=== PATIENT | male | born 1975 | race African-American/Black ===

== ENCOUNTER 2023-07-20 11:10 | Outpatient (REF) | payer MEDICAID, SELFPAY ==
[2023-07-20 15:26] LABS: Anion Gap 13 (12-20); Blood Urea Nitrogen 22 mg/dL (9-16); Calcium 9.9 mg/dL (8.4-10.2); Carbon Dioxide 31 mmol/L (22-29); Chloride 100 mmol/L (96-108); Estimated Glomerular Filt Rate > 60; Glucose Random 81 mg/dL (60-115); Potassium 4.2 mmol/L (3.3-5.1); Sodium 140 mmol/L (135-145)
== END 2023-07-20 11:11 | disposition home or self-care (01) ==
LOC: HO.CHCLDS 11:10
PROVIDERS: Visit Provider Internal Medicine
DX: I50.23 Acute on chronic systolic (congestive) heart failure (principal); I34.0 Nonrheumatic mitral (valve) insufficiency
CPT/HCPCS: 36415; 80048

== ENCOUNTER 2023-09-08 17:18 | Outpatient (REF) | payer MEDICAID, SELFPAY | END 2023-09-08 17:19 | disposition home or self-care (01) | LOC: HO.LNP 17:18 | PROVIDERS: Visit Provider Internal Medicine | DX: K12.1 Other forms of stomatitis (principal) | CPT/HCPCS: 87255 ==

== ENCOUNTER 2024-03-13 10:44 | Outpatient (REF) | payer MEDICAID, SELFPAY ==
[2024-03-13 14:24] LABS: MANUAL DIFF FLAG NO
[2024-03-13 14:31] LABS: Basophils Percent Auto 0.5 % (0-2); Hematocrit 41.7 % (42.0-52.0); Imm Gran Abs Auto 0.02 X10*3/uL (0.00-0.03); Imm Gran Pct Auto 0.5 % (0.0-0.4); Lymphocytes Absolute Auto 1.7 X10*3/uL (1.2-4.9); Lymphocytes Percent Auto 40.5 % (20-40); Mean Corpuscular HGB Conc 31.2 g/dl (31.0-36.0); Mean Corpuscular Volume 96.3 fL (80.0-98.0); Mean Platelet Volume 10.3 fL (9.4-12.4); Monocytes Absolute Auto 0.5 X10*3/uL (0.1-1.2); Monocytes Percent Auto 12.5 % (2-11); Neutrophils Absolute Auto 1.9 x10*3/uL (2.0-8.3); Platelet Count 182 X10*3/uL (160-400); Red Blood Count 4.33 X10*6/uL (4.60-5.80); Red Cell Distribution Width 12.4 % (11.0-16.0); White Blood Count 4.2 X10*3/uL (4.8-10.8)
[2024-03-13 14:51] LABS: Alanine Aminotransferase 14 U/L (0-40); Alkaline Phosphatase 78 U/L (39-117); Anion Gap 12 (12-20); Aspartate Amino Transferase 29 U/L (5-37); Bilirubin Direct 0.2 mg/dL (0.0-0.5); Bilirubin Total 0.3 mg/dL (0.0-1.0); Blood Urea Nitrogen 20 mg/dL (9-16); Calcium 10.1 mg/dL (8.4-10.2); Carbon Dioxide 31 mmol/L (22-29); Chloride 103 mmol/L (96-108); Cholesterol 194 mg/dL (<200); Estimated Glomerular Filt Rate > 60; Glucose Random 74 mg/dL (60-115); HDL Cholesterol 48 mg/dL (>40); LDL Cholesterol Calculated 131 mg/dL (<100); Potassium 4.1 mmol/L (3.3-5.1); Sodium 142 mmol/L (135-145); Total Protein 8.5 g/dL (6.5-8.0); Triglycerides 79 mg/dL (<150)
== END 2024-03-13 10:45 | disposition home or self-care (01) ==
LOC: HO.CHCLDS 10:44
PROVIDERS: Visit Provider Student in an Organized Health Care Education/Training Program
DX: R56.9 Unspecified convulsions (principal); D64.9 Anemia, unspecified
CPT/HCPCS: 36415; 80048; 80061; 80076; 85025

== ENCOUNTER 2025-03-25 11:09 | Outpatient (REF) | payer MEDICAID, SELFPAY ==
--- OUTSIDE RECORDS SUMMARY | 2025-03-25 10:15 | XMS_ITS | Encounter Summary ---
Author Organization [employer] Address [address] [facility] 7 [place] [address] Care Team Providers Care Investment Director Name Role Phone Dany Wiley MD Primary Care Provider [phone] Reason for Visit * Reason Comments transfer Encounter Details Date Type Department Care Team (Latest Contact Info) Description 03/25/2025 10:15 AM EST Office Visit [facility] [address] [place], [place] [phone] Dany Wiley MD [address] [place] [address] Developmental delay (Primary Dx); Generalized seizure (CMS/HCC) (HCC); Non-rheumatic mitral regurgitation; Seasonal allergic rhinitis, unspecified trigger; Dietary counseling; Exercise counseling; Overweight; Other constipation; Encounter for immunization Social History Tobacco Use Types Packs/Day Years Used Date Smoking Tobacco: Never Smokeless Tobacco: Never Alcohol Use Standard Drinks/Week Comments Never 0 (1 standard drink = 0.6 oz pur e alcohol) Housing Stability Answer Date Recorded What is your housing situation today? I have reynold phillip 03/13/[address] you li ve. Do you have problems with any of the following? None of the above 03/13/2024 Food Insecurity Answer Date Recorded Within the past 12 months, y ou worried that your food would run out before you got money to buy more: Never True 03/13/2024 Within the past 12 months,th e food you bought just didn't last and you didn't have enough money to get more: Never True Transportation Answer Date Recorded In the past 12 months, has l ack of transportation kept you from medical appts, meetings, work or from getting things needed for daily living? No 03/13/2024 Utilities Answer Date Recorded In the past 12 months, has t he electric, gas, oil or water company threatened to shut off services in your home? No 03/13/2024 Internet Access Answer Date Recorded Internet Access Q1 Yes 03/14/2025 Internet Access Q2 Not on file 03/14/2025 Sex and Gender Information Value Date Recorded Sex Assigned at Male 02/28/2022 10:20 AM EDT Legal Sex Male 10:20 AM EDT Gender Identity Male 02/28/2022 10:20 AM EDT Sexual Orientation Choose not to disclose 2021 10:20 AM EDT documented as of this encounter Last Filed Vital Signs Vital Sign Reading Time Taken Comments Blood Pressure 125/100 03/25/2025 10:23 AM EST Pulse 76 03/25/2025 10:23 AM EST Temperature - - Respiratory Rate 21 03/25/2025 10:23 AM EST Oxygen Saturation 100% 03/25/2025 10:23 AM EST Inhaled Oxygen Concentration - - Weight 111 kg (244 lb) 03/25/2025 10:23 AM EST Height 200.7 cm (6' 7 ) 03/25/2025 10:23 AM EST Body Mass Index 27.49 03/25/2025 10:23 AM EST documented in this encounter Progress Notes * Dany Wiley MD - 03/25/2025 10:15 AM EST SUBJECTIVE Ulises Dixon is a 49 y.o. male who presents for transfer. HPI Medical history reviewed No acute event since his last office visit Came to the office w/ his telehealth case manager who does not report any acute need. Problem List[1] Allergies[2] Medications Ordered Prior to Encounter[3] Review of Systems Constitutional: Negative for activity change, appetite change, chills and diaphoresis. HENT: Negative for dental problem, drooling and ear discharge. Eyes: Negative for pain and itching. Respiratory: Negative for cough, choking and chest tightness. Cardiovascular: Negative for palpitations and leg swelling. Gastrointestinal: Negative for abdominal pain, anal bleeding and blood in stool. Endocrine: Negative for cold intolerance and heat intolerance. Genitourinary: Negative for flank pain, frequency and genital sores. Musculoskeletal: Negative for back pain. Neurological: Negative for light-headedness, numbness and headaches. Psychiatric/Behavioral: Negative for agitation, confusion and decreased concentration. OBJECTIVE Vitals: 03/25/25 1023 BP: (!) 125/100 BP Location: Left arm Patient Position: Sitting BP Cuff Size: Adult Pulse: 76 Resp: 21 SpO2: 100% Weight: 244 lb (111 kg) Height: 6' 7 (2.007 m) Physical Exam Constitutional: General: He is not in acute distress. Appearance: Normal appearance. He is not ill-appearing, toxic-appearing or diaphoretic. Cardiovascular: Rate and Rhythm: Normal rate. Pulmonary: Effort: Pulmonary effort is normal. Neurological: Mental Status: He is alert. Mental status is at baseline. Motor: Motor function is intact. Gait: Gait is intact. Comments: Non verbal. Assessment/Plan Assessment/Plan Diagnoses and all orders for this visit: Developmental delay Comments: Lives in an assisted living Well groomed. Orders: - CBC auto differential; Future - Comprehensive Metabolic Panel; Future - Lipid Panel, Standard; Future - TSH with Reflex to Free T4; Future - Hepatitis C Antibody with Reflex to HCV, RNA, Quantitative, Real-Time PCR; Future - HIV-1/2 Antigen and Antibodies, Fourth Generation, with Reflexes; Future - Hepatitis B Surface Antibody, Qualitative; Future - diazePAM (Valium) 10 MG tablet; 1 tab 30 minutes prior to his eye exam Generalized seizure (CMS/HCC) (HCC) Comments: NO reported recent seizure no change in management. Orders: - CBC auto differential; Future - Comprehensive Metabolic Panel; Future - Lipid Panel, Standard; Future - TSH with Reflex to Free T4; Future Non-rheumatic mitral regurgitation Comments: Follow up w/ cardiology Seasonal allergic rhinitis, unspecified trigger Comments: No change Dietary counseling - acetaminophen (Tylenol) 325 MG tablet; Take 2 Tablets (=650mg) by oral route every 6 hours as needed for fever (temp > 100), headache or bodyache as needed Exercise counseling Overweight Other constipation Comments: Appropriate hydration Senna 8.6 mg daily colace as directed. Orders: - docusate sodium (Colace) 100 MG capsule; Take 1 capsule (100 mg) by mouth 2 times daily. - sennosides (Senokot) 8.6 MG tablet; take 1 tablet by oral route at bedtime Encounter for immunization - FLU VACCINE TRIVALENT [id number] (Fluarix) 19 yrs + - TDAP VACCINE 7 yrs + [1] Patient Active Problem List Diagnosis Developmental delay Generalized seizure (CMS/HCC) ([facility] Non-rheumatic mitral regurgitation Normocytic anemia Seasonal allergic rhinitis Seizure disorder (CMS/HCC) ([facility]) [2] No Known Allergies [3] Current Outpatient Medications on File Prior to Visit Medication Sig Dispense Refill albuterol (2.5 MG/3ML) 0.083% nebulizer solution Take 3 mL (2.5 mg) by nebulization every 4 (four) hours if needed for wheezing. 75 mL 0 ALPRAZolam (Xanax) 2 MG tablet Take 1 tablet (2 mg) by mouth 1 (one) time for 1 dose. Take 1 [id number] minutes prior to chest CT scan 1 tablet 0 aspirin 81 MG EC tablet TAKE 1 TABLET BY MOUTH EVERY DAY 90 tablet 3 diazePAM (Valium) 10 MG tablet Take 1 tab orally prn 1 hour prior to lab work/studies/tests/medicaltreatments for agitation prevention 10 tablet 0 diazePAM (Valium) 5 MG tablet Take 3 tablets by mouth if needed each day for anxiety. EPINEPHrine (EpiPen 2-Carson) 0.3 MG/0.3ML injection syringe Inject 0.3 mg intramuscularly single doseas needed furosemide (Lasix) 40 MG tablet Take 1 tablet (40 mg) by mouth 2 times daily. 60 tablet 11 lamoTRIgine (LaMICtal) 150 MG tablet Take 1 tablet by mouth every 12 (twelve) hours. metoprolol succinate XL (Toprol XL) 25 MG 24 hr tablet TAKE 1 TABLET BY MOUTH EVERY MORNING. DO NOTCRUSH OR CHEW. TOTAL DOSE OF 75 MG DAILY. 30 tablet 2 metoprolol succinate XL (Toprol-XL) 50 MG 24 hr tablet TAKE 1 TABLET BY MOUTH EVERY MORNING. DO NOTCRUSH OR CHEW. TOTAL DOSE OF 75 MG DAILY. 30 tablet 3 Multiple Vitamins-Minerals (Multivitamin Gummies Adult) chewable tablet CHEW 1 TABLET BY MOUTH EVERY MORNING 90 tablet 3 omeprazole (PriLOSEC) [address] capsule TAKE 1 CAPSULE BY MOUTH BEFORE BREAKFAST 90 capsule 1 Skin Protectants, Misc. (eucerin) cream APPLY SMALL AMOUNT TOPICALLY TWICE DAILY 99 g 11 sucralfate (Carafate) 1 GM/10ML suspension Apply to affected area of lower lips 4 times daily usingQ-tip. 414 mL 0 [DISCONTINUED] acetaminophen (Tylenol) 325 MG tablet Take 2 Tablets (=650mg) by oral route every 6 hours as needed for fever (temp > 100), headache or bodyache as needed 30 tablet 11 [DISCONTINUED] docusate sodium (Colace) 100 MG capsule Take 1 capsule (100 mg) by mouth 2 times daily. 180 capsule 3 [DISCONTINUED] Multiple Vitamins-Minerals (Multivitamin Gummies Adult) chewable tablet CHEW 1 TABLET BY MOUTH EVERY MORNING 90 tablet 3 [DISCONTINUED] sennosides (Senokot) 8.6 MG tablet take 1 tablet by oral route at bedtime as needed for no bowel movement in 2 days or PRN 90 tablet 3 No current facility-administered medications on file prior to visit. documented in this encounter Plan of Treatment Scheduled Orders Name Type Priority Associated Diagnoses Orde r Schedule Comprehensive Metabolic Panel Lab Routine Developmental delay Generalized seizure (CMS/HCC) (HCC) Expected: 03/25/2025 (Approximate), Expires: 03/25/2026 Lipid Panel, Standard Lab Routine Developmental delay Generalized seizure (CMS/HCC) (HCC) Expected: 03/25/2025 (Approximate), Expires: 03/25/2026 TSH with Reflex to Free T4 Lab Routine Developmental delay Generalized seizure (CMS/HCC) (HCC) Expected: 03/25/2025 (Approximate), Expires: 03/25/2026 Hepatitis C Antibody with Reflex to HCV, RNA, Quantitative, Real-Time PCR Lab Routine Developmental delay Expected: 03/25/2025, Expires: 03/25/2026 HIV-1/2 Antigen and Antibodies, Fourth Generation, with Reflexes Lab Routine Developmental delay Expected: 03/25/2025 (Approximate), Expires: 03/25/2026 Hepatitis B Surface Antibody, Qualitative Lab Routine Developmental delay Expected: 03/25/2025 (Approximate), Expires: 03/25/2026 documented as of this encounter Procedures Procedure Name Priority Date/Time Associated Diagnosis Comments CBC WITH AUTO DIFFERENTIAL Routine 03/25/2025 11:10 AM EST Developmental delay Generalized seizure (CMS/HCC) (HCC) documented in this encounter Results * (ABNORMAL) CBC auto differential (03/25/2025 11:10 AM EST) White Blood Count 4.0(L) 4.8 - 10.8 X10*3/uL [facility] Red Blood Count 4.05(L) 4.60 - 5.80 X10*6/uL [facility] Hemoglobin 12.3(L) 14.0 - 18.0 g/dl [facility] Hematocrit 39.4(L) 42.0 - 52.0 % [facility] Mean Corpuscular Volume 97.3 80.0 - 98.0 fL [facility] Mean Corpuscular Hemoglobin 30.4 27.0 - 33.0 pg [facility] Mean Corpuscular HGB Conc 31.2 31.0 - 36.0 g/dl [facility] Red Cell Distribution Width 12.0 11.0 - 16.0 % [facility] Platelet Count 164 160 - 400 X10*3/uL [facility] Mean Platelet Volume 10.0 9.4 - 12.4 fL [facility] Neutrophils Percent Auto 44.3(L) 45 - 73 % [facility] Imm Gran Pct Auto 0.3 0.0 - 0.4 % [facility] Lymphocytes Percent Auto 44.8(H) 20 - 40 % [facility] Monocytes Percent Auto 9.8 2 - 11 % [facility] Eosinophils Percent Auto 0.0 0 - 4 % [facility] Basophils Percent Auto 0.8 0 - 2 % [facility] NRBC Pct Auto 0.0 0.0 - 0.2 /100WBC [facility] Neutrophils Absolute Auto 1.8(L) 2.0 - 8.3 x10*3/uL [facility] Imm Gran Abs Auto 0.01 0.00 - 0.03 X10*3/uL [facility] Lymphocytes Absolute Auto 1.8 1.2 - 4.9 X10*3/uL [facility] Monocytes Absolute Auto 0.4 0.1 - 1.2 X10*3/uL [facility] Eosinophils Absolute Auto 0.0 0.0 - 0.4 X10*3/uL [facility] Basophils Absolute Auto 0.0 0.0 - 0.2 X10*3/uL [facility] NRBC Abs Auto 0.000 0.0 - 0.012 X10*3/uL [facility] Blood Venous blood specimen / Unknown 03/25/2025 11:10 AM EST 03/25/2025 2:14 PM EST us Dany Wiley MD LAB BLOOD ORDERABLES Final Result [facility] [address] [place] [address] [phone] documented in this encounter Visit Diagnoses Diagnosis Developmental delay- Primary Unspecified delay in development Generalized seizure (CMS/HCC) (HCC) Other convulsions Non-rheumatic mitral regurgitation Seasonal allergic rhinitis, unspecified trigger Dietary counseling Dietary surveillance and counseling Exercise counseling Overweight Other constipation Encounter for immunization documented in this encounter Care Teams Investment Director Relationship Specialty Start Date End Date Dany Wiley MD [address] [place] [id number] PCP - General Internal Medicine 02/27/25 documented as of this encounter
[2025-03-25 14:17] LABS: MANUAL DIFF FLAG NO
[2025-03-25 14:30] LABS: Hematocrit 39.4 % (42.0-52.0); Hemoglobin 12.3 g/dl (14.0-18.0); Imm Gran Abs Auto 0.01 X10*3/uL (0.00-0.03); Imm Gran Pct Auto 0.3 % (0.0-0.4); Lymphocytes Absolute Auto 1.8 X10*3/uL (1.2-4.9); Mean Corpuscular HGB Conc 31.2 g/dl (31.0-36.0); Mean Corpuscular Hemoglobin 30.4 pg (27.0-33.0); Mean Corpuscular Volume 97.3 fL (80.0-98.0); NRBC Abs Auto 0.000 X10*3/uL (0.0-0.012); NRBC Pct Auto 0.0 /100WBC (0.0-0.2); Platelet Count 164 X10*3/uL (160-400); Red Blood Count 4.05 X10*6/uL (4.60-5.80); White Blood Count 4.0 X10*3/uL (4.8-10.8)
--- OUTSIDE RECORDS SUMMARY | 2025-03-25 14:43 | XMS_ITS | Encounter Summary ---
Author Organization [employer] Address [address] [place] [address] 7t [place] [address] Care Team Providers Care Community Advocate Name Role Phone Angela Ruiz MD Primary Care Provider [phone] Dany Wiley MD Primary Care Provider [phone] Encounter Details Date Type Department Care Team (Late st Contact Info) Description 12/28/2022 Orders Only [facility] PEDS [address] [place], [place] [phone] Angela Ruiz MD [address] [place] [address] Acute cough Social History Tobacco Use Types Packs/Day Years Used Date Smoking Tobacco: Never Smokeless Tobacco: Never Alcohol Use Standard Drinks/Week Comments Never 0 (1 standard drink = 0.6 oz pur e alcohol) Sex and Gender Information Value Date Recorded Sex Assigned at Male 02/28/2022 10:20 AM EDT Legal Sex Male 10:20 AM EDT Gender Identity Male 02/28/2022 10:20 AM EDT Sexual Orientation Choose not to disclose 2021 10:20 AM EDT documented as of this encounter Plan of Treatment Not on file documented as of this encounter Visit Diagnoses Diagnosis Acute cough documented in this encounter Care Teams Community Advocate Relationship Specialty Start Date End Date Angela Ruiz MD [address] [place] [address] PCP - General Family Medicine 03/14/12 02/26/25 aDny Wiley MD [address] [place] [address] PCP - General Internal Medicine 02/27/25 documented as of this encounter
--- OUTSIDE RECORDS SUMMARY | 2025-03-25 14:43 | XMS_ITS | Encounter Summary ---
Author Organization [employer] Address [address] [facility] 7t [place] [address] Care Team Providers Care Loss Prevention Associate Name Role Phone Angela Ruiz MD Primary Care Provider [phone] Dany Wiley MD Primary Care Provider [phone] Encounter Details Date Type Department Care Team (Late st Contact Info) Description 09/11/2023 Orders Only [facility] & PEDS [address] [place], [place] [phone] PenaHaja Velazco MD [address] [place] [address] Social History Tobacco Use Types Packs/Day Years Used Date Smoking Tobacco: Never Smokeless Tobacco: Never Alcohol Use Standard Drinks/Week Comments Never 0 (1 standard drink = 0.6 oz pur e alcohol) Housing Stability Answer Date Recorded What is your housing situation today? I have reynold phillip 02/16/[address] you li ve. Do you have problems with any of the following? None of the above 02/16/2023 Food Insecurity Answer Date Recorded Within the past 12 months, y ou worried that your food would run out before you got money to buy more: Never True 02/16/2023 Within the past 12 months,th e food you bought just didn't last and you didn't have enough money to get more: Never True Transportation Answer Date Recorded In the past 12 months, has l ack of transportation kept you from medical appts, meetings, work or from getting things needed for daily living? No 02/16/2023 Utilities Answer Date Recorded In the past 12 months, has t he electric, gas, oil or water company threatened to shut off services in your home? No 02/16/2023 Sex and Gender Information Value Date Recorded Sex Assigned at Male 02/28/2022 10:20 AM EDT Legal Sex Male 10:20 AM EDT Gender Identity Male 02/28/2022 10:20 AM EDT Sexual Orientation Choose not to disclose 2021 10:20 AM EDT documented as of this encounter Plan of Treatment Not on file documented as of this encounter Visit Diagnoses Not on filedocumented in this encounter Care Teams Loss Prevention Associate Relationship Specialty Start Date End Date Angela Ruiz MD [address] [place] [id number] PCP - General Family Medicine 03/14/12 02/26/25 Dany Wiley MD [address] [place] [id number] PCP - General Internal Medicine 02/27/25 documented as of this encounter
--- OUTSIDE RECORDS SUMMARY | 2025-03-25 14:43 | XMS_ITS | Encounter Summary ---
Author Organization [employer] Address [address] [facility] 7t [place] [address] Care Team Providers Care Molecular Spectroscopist Name Role Phone Angela Ruiz MD Primary Care Provider [phone] Dany Wiley MD Primary Care Provider [phone] Reason for Visit * Reason Onset Date Comments Medication Question 09/07/2023 Encounter Details Date Type Department Care Team (Late st Contact Info) Description 09/07/[address] [facility] [address] [place] [address] Angela Ruiz MD [address] [place] [address] Medication Question Social History Tobacco Use Types Packs/Day Years [...] AM EDT documented as of this encounter Miscellaneous Notes * Telephone Encounter - Demi Reyna RN - 09/07/2023 3:20 PM EDT Message was sent to covering provider regarding request for ASA. Awaiting on provider response, pt is also scheduled for tomorrow for SDC appt. * Telephone Encounter - Tong Wiggins - 09/07/2023 1:29 PM EDT Tc from Nav morfin in regards to pt having cardiac catheterization. [facility] advised Nav patel pt to contact pt to have Asprin 81 mg daily prescribed. If any questions you can contact pt at [phone] documented in this encounter Plan of Treatment Not on file documented as of this encounter Visit Diagnoses Not on filedocumented in this encounter Care Teams Molecular Spectroscopist Relationship Specialty Start Date End Date Angela Ruiz MD [address] [place] [id number] PCP - General Family Medicine 03/14/12 02/26/25 Dany Wliey MD [address] [place] [address] PCP - General Internal Medicine 02/27/25 documented as of this encounter
--- OUTSIDE RECORDS SUMMARY | 2025-03-25 14:43 | XMS_ITS | Encounter Summary ---
Author Organization [employer] Address [address] [facility] 7t [place] [address] Care Team Providers Care Supervisor Dry Paste Name Role Phone Angela Ruiz MD Primary Care Provider [phone] Dany Wiley MD Primary Care Provider [phone] Reason for Visit * Reason Onset Date Comments Letter for School/Work 05/17/2023 Encounter Details Date Type Department Care Team ([facility] st Contact Info) Description 05/17/2023 Telephone [facility] [address] [place] [address] Angela Ruiz MD [address] [place], [place] [phone] Letter for School/Work Social History Tobacco Use Types Packs/Day Years [...] Telephone Encounter - Demi Reyna RN - 05/23/2023 9:36 AM EST Noted. Letter generated and faxed to number provided below. * Telephone Encounter - Angela Ruiz MD - 05/22/2023 11:36 AM EST Ok to give letter * Telephone Encounter - Demi Reyna RN - 05/17/2023 1:30 PM EST Provider off, please advise if letter can be generated for pt clearing pt for day program s/p COVIDinfection. * Telephone Encounter - Drew Goode - 05/17/2023 11:30 AM EST Tc from [employer] at [facility] calling to request a letter for the patient can return to the day program patient was diagnosed with covid a couple weeks back and needs the letter inorder to return the fax# [phone] documented in this encounter Plan of Treatment Not on file documented as of this encounter Visit Diagnoses Not on filedocumented in this encounter Care Teams Supervisor Dry Paste Relationship Specialty Start Date End Date Angela Ruiz MD [address] [place] [address] PCP - General Family Medicine 03/14/12 02/26/25 Dany Wiley MD [address] [place] [id number] PCP - General Internal Medicine 02/27/25 documented as of this encounter
--- OUTSIDE RECORDS SUMMARY | 2025-03-25 14:43 | XMS_ITS | Encounter Summary ---
Author Organization [employer] Address [address] [facility] 7t [place] [address] Care Team Providers Care Solvent Station Attendant Name Role Phone Angela Ruiz MD Primary Care Provider [phone] Dany Wiley MD Primary Care Provider [phone] Reason for Visit * Reason Onset Date Comments FYI 07/13/2023 Encounter Details Date Type Department Care Team (Late st Contact Info) Description 07/13/2023 Telephone [facility] MEDICINE [address] [place] [address] Angela Ruiz MD [address] [place] [address] I Social History Tobacco Use Types Packs/Day Years [...] encounter Miscellaneous Notes * Telephone Encounter - Kay Child - 07/13/2023 12:59 PM EDT Tc from Sergey with [facility], calling to inform pt is in a 1 time evaluation for home care. Any questions contact Sergey at [phone] documented in this encounter Plan of Treatment Not on file documented as of this encounter Visit Diagnoses Not on filedocumented in this encounter Care Teams Solvent Station Attendant Relationship Specialty Start Date End Date Angela Ruiz MD [address] [place] [id number] PCP - General Family Medicine 03/14/12 02/26/25 Dany Wiley MD [address] [place] [id number] PCP - General Internal Medicine 02/27/25 documented as of this encounter
--- OUTSIDE RECORDS SUMMARY | 2025-03-25 14:43 | XMS_ITS | Encounter Summary ---
Author Organization [employer] Address [address] [place] [address] [address] [place] [address] Care Team Providers Care Director Vaccine Name Role Phone Angela Ruiz MD Primary Care Provider [phone] Dany Wiley MD Primary Care Provider [phone] Encounter Details Date Type Department Care Team (Late st Contact Info) Description 09/02/2022 [facility] [employer] [facility] [address] [place], [place] [phone] Angela Ruiz MD [address] [place] [address] [phone] Social History Tobacco Use Types Packs/Day Years Used Date Smoking Tobacco: Unknown Sex and Gender Information Value Date Recorded Sex Assigned at Male 02/28/2022 10:20 AM EDT Legal Sex Male 10:20 AM EDT Gender Identity Male 02/28/2022 10:20 AM EDT Sexual Orientation Choose not to disclose 2021 10:20 AM EDT COVID-19 Exposure Response Date Recorded In the last 10 days, have yo u been in contact with someone who was confirmed or suspected to have Coronavirus/COVID-19? No / Unsure 09/01/2022 1:42 PM EDT documented as of this encounter Plan of Treatment Not on file documented as of this encounter Visit Diagnoses Not on filedocumented in this encounter Care Teams Director Vaccine Relationship Specialty Start Date End Date Angela Ruiz MD [address] [place] [address] PCP - General Family Medicine 03/14/12 02/26/25 Dany Wiley MD [address] [place] [id number] PCP - General Internal Medicine 02/27/25 documented as of this encounter
--- OUTSIDE RECORDS SUMMARY | 2025-03-25 14:43 | XMS_ITS | Encounter Summary ---
Author Organization [employer] Address [address] [facility] 7 [place] [address] Care Team Providers Care Physical Therapy Assistant Instructor Name Role Phone Dany Wiley MD Primary Care Provider [phone] Reason for Visit * Reason Onset Date Comments Chart Prep 03/24/2025 Encounter Details Date Type Department Care Team ([facility] st Contact Info) Description 03/24/2025 Telephone [facility] MED [facility] PEDS [address] [place], [place] [phone] Dany Wiley MD [address] [place] [address] Chart Prep Social History Tobacco Use Types Packs/Day Years [...] encounter Miscellaneous Notes * Telephone Encounter - Ericka Wiggins MA - 03/24/2025 1:48 PM EST Chart Prep Labs: not applicable Images: not applicable Referrals: complete Vaccines due: Covid, Flu, PCV20, Tdap, and Hep B Screenings: colonoscopy, STI screening, and PISQ Overdue care gaps: SBIRT, PHQ-9, Disability screen, and Tobacco documented in this encounter Plan of Treatment Not on file documented as of this encounter Visit Diagnoses Not on filedocumented in this encounter Care Teams Physical Therapy Assistant Instructor Relationship Specialty Start Date End Date Dany Wiley MD [address] [place], [place] [address] [place] [address] PCP - General Internal Medicine 02/27/25 documented as of this encounter
--- OUTSIDE RECORDS SUMMARY | 2025-03-25 14:43 | XMS_ITS | Encounter Summary ---
Author Organization [facility] Address [address] [facility] [employer] [address] 7t [place] [address] Care Team Providers Care Die Maker Trim Name Role Phone Angela Ruiz MD Primary Care Provider [phone] Dany Wiley MD Primary Care Provider [phone] Reason for Visit * Reason Onset Date Comments Nurse Triage 09/07/2023 Encounter Details Date Type Department Care Team (Late st Contact Info) Description 09/07/2023 Telephone [facility] MEDICINE [address] [place] [address] Angela Ruiz MD [address] [place] [address] Nurse Triage Social History Tobacco Use Types Packs/Day Years [...] t he electric, gas, oil or water [employer] threatened to shut off services in your [...] Encounter - Demi Reyna RN - 09/07/2023 3:21 PM EDT Noted will also send message to PCP in regards to request for baby ASA. * Telephone Encounter - Aura Lambert RN - 09/07/2023 1:35 PM EDT Called Soaking Tank Worker on HIPAA from [employer] program. No answer. Left message on voice mail to call back [facility] nurses at [phone]. Called back x2. States pt. Had a tooth extraction 2 days ago. Now left side of lip is swollen. Program requesting an order to give Benadryl. Also pt. Was supposed to be put on a Baby aspirin prior toupcoming procedure Cardiac catheterization scheduled for 09/12/23. Please send Aspirin order to [facility]MY so pt. Can start taking because cardiology sent instructions to program yesterday but pt. Does not have money to buy OTC medications. Please send RX orders to [facility]. Will send request to team provider as PCP not in office today. Will also send this note to Clinical care coordinators to get [facility] cardiology note scanned into pt. Chart for reference. * Telephone Encounter - Tong Wiggins - 09/07/2023 1:26 PM EDT Symptom: Lip Swelling Outcome: Schedule a same-day appointment or talk to a nurse or provider today Reason: Caller denied all higher acuity questions documented in this encounter Plan of Treatment Not on file documented as of this encounter Visit Diagnoses Not on filedocumented in this encounter Care Teams Die Maker Trim Relationship Specialty Start Date End Date Angela Ruiz MD [address] [place] [id number] PCP - General Family Medicine 03/14/12 02/26/25 Dany Wiley MD [address] [place] [id number] PCP - General Internal Medicine 02/27/25 documented as of this encounter
--- OUTSIDE RECORDS SUMMARY | 2025-03-25 14:43 | XMS_ITS | Encounter Summary ---
Author Organization [facility] Address [address] [facility] [address] [place] [address] Care Team Providers Care Silviculture Teacher Name Role Phone Angela Ruiz MD Primary Care Provider [phone] Dany Wiley MD Primary Care Provider [phone] Reason for Visit * Reason Onset Date Comments FYI 07/12/2023 Encounter Details Date Type Department Care Team (Late st Contact Info) Description 07/12/2023 Telephone [facility] MEDICINE [address] [place] [address] Angela Ruiz MD [address] [place] [address] FYI Social History Tobacco Use Types Packs/Day Years [...] encounter Miscellaneous Notes * Telephone Encounter - Ezio Rodney RN - 07/12/2023 11:35 AM EDT Please see FYI below. * Telephone Encounter - Kay Child - 07/12/2023 11:25 AM EDT Tc from with [facility] calling to inform PCP pt get discharge yesterday from [facility] and he was discharge with orders for PT and [facility] will send the therapist tomorrow 07/12. documented in this encounter Plan of Treatment Not on file documented as of this encounter Visit Diagnoses Not on filedocumented in this encounter Care Teams Silviculture Teacher Relationship Specialty Start Date End Date Angela Ruiz MD [address] [place] [id number] PCP - General Family Medicine 03/14/12 02/26/25 Dany Wiley MD [address] [place] [phone] PCP - General Internal Medicine 02/27/25 documented as of this encounter
--- OUTSIDE RECORDS SUMMARY | 2025-03-25 14:43 | XMS_ITS | Encounter Summary ---
Author Organization [facility] Address [address] [facility] 7[address] [place] [address] Care Team Providers Care Bio Medical Technician Name Role Phone Angela Ruiz MD Primary Care Provider [phone] Dany Wiley MD Primary Care Provider [phone] Reason for Visit * Reason Onset Date Comments Appointment Request 07/21/2023 Letter for program 07/21/2023 Encounter Details Date Type Department Care Team ([facility] st Contact Info) Description 07/21/2023 Telephone [facility] MEDICINE [address] [place] [address] Angela Ruiz MD [address] [place], [place] [phone] Appointment Request; Letter for program Social History Tobacco Use Types Packs/Day Years [...] encounter Miscellaneous Notes * Telephone Encounter - Wing Homar RN - 07/21/2023 4:38 PM EDT Tc to Nav regarding return letter being generated but request for hospital bed requiring more time. Nva verbalizes understanding and agreement with plan. * Telephone Encounter - Sara Paul RN - 07/21/2023 11:22 AM EDT TC placed to patient. Reached Cameron, Principal Biostatistician, listed as emergency contact on HIPAA form.Cameron states patient is nonverbal and he takes patient messages. Message below conveyed. Cameron states he is waiting to hear back about the status of prescription for a medical bed for the patient wilfredo letter (fax to [phone]). The letter appears to have been written by Dr. Wiley and can be faxed to above number. Cameron asks that patient be seen sooner than 08/21/23 if possible. Opening on 08/10/23 with PCP available. Appointment changed to that day. Routing back to [facility] nurses to fax letterif not already done and to PCP to follow up on DME script for medical bed if recommended. ----- Message from Dany Wiley MD sent at 07/21/2023 10:57 AM EDT ----- Labs reviewed: normal electrolytes, Elevated BUN which could be secondary to mild dehydration. Pt needs to Have a glass of water w/ each meal. He will follow up w/ PCP in a month or so to assess if his current medication will need to be adjusted. ----- Message ----- From: Interface, Lab Results In Sent: 07/20/2023 3:27 PM EDT To: Dany Wilye MD * Telephone Encounter - Wing Homar RN - 07/21/2023 10:36 AM EDT Please advise, tc to Nav. He is requesting letter for pt to return to day program. Scheduled follow-up with Dr. Wiley for 08/20 at 11:15 am as Nav stated it was recommended by Dr. Wiley for another appt in one month. No vaccines are needed as per Nav. Nav is also asking about the status about a script for a medical bed. Stated it was recommended from the loader operator supervisor and that it was given Dr. Wiley at the last visit. Stated to Nav that all this information would sent to Dr. Wiley. Nav verbalized understanding and agreement with plan. * Telephone Encounter - Tong Wiggins - 07/21/2023 9:35 AM EDT Tc from Nav requesting letter for pt to return back to his program. Nav is also requesting call back from nurse to schedule a follow up for pt. Nav state DTaP was advised to have 1 month follow up with pcp. Please contact pt at [phone]. documented in this encounter Plan of Treatment Not on file documented as of this encounter Visit Diagnoses Not on filedocumented in this encounter Care Teams Bio Medical Technician Relationship Specialty Start Date End Date Angela Ruiz MD [address] [place] [address] PCP - General Family Medicine 03/14/12 02/26/25 Dany Wiley MD [address] [place] [phone] PCP - General Internal Medicine 02/27/25 documented as of this encounter
--- OUTSIDE RECORDS SUMMARY | 2025-03-25 14:43 | XMS_ITS | Clinical Summary ---
Author Organization [facility] Address [address] [facility] 7t [place] [address] Care Team Providers Care Freight Forwarder Name Role Phone Dany Wiley MD Primary Care Provider [phone] Allergies No known active allergies Medications EPINEPHrine (EpiPen 2-Carson) 0.3 MG/0.3ML injection syringe Inject 0.3 mg intramuscularly single dose as needed 019 Active lamoTRIgine (LaMICtal) 150 MG tablet Take 1 tablet by mouth every 12 (twelve) hours. Active ALPRAZolam (Xanax) 2 MG tablet Take 1 tablet (2 mg) by mouth 1 (one) time for 1 dose. Take 1 tablet 30 minutes prior to chest CT scan 1 tablet 023 Active diazePAM (Valium) 5 MG tablet Take 3 tablets by mouth if needed each day for anxiety. 023 Active albuterol (2.5 MG/3ML) 0.083% nebulizer solutionIndicat ions:Subacute cough Take 3 mL (2.5 mg) by nebulization every 4 (four) hours if needed for wheezing. 75 mL 024 Active furosemide (Lasix) 40 MG tablet Take 1 tablet (40 mg) by mouth 2 times daily. 60 tablet 11 024 Active sucralfate (Carafate) 1 GM/10ML suspension Apply to affected area of lower lips 4 times daily using Q-tip. 414 mL 024 Active Skin Protectants, Misc. (eucerin) cream APPLY SMALL AMOUNT TOPICALLY TWICE DAILY 99 g 11 024 Active diazePAM (Valium) 10 MG tablet Take 1 tab orally prn 1 hour prior to lab work/studies/test s/medical treatments for agitation prevention 10 tablet 025 Active omeprazole (PriLOSEC) [address] capsule TAKE 1 CAPSULE BY MOUTH BEFORE BREAKFAST 90 capsule 1 025 Active aspirin 81 MG EC tablet TAKE 1 TABLET BY MOUTH EVERY DAY 90 tablet 3 025 Active metoprolol succinate XL (Toprol-XL) 50 MG 24 hr tabletIndicatio ns:Acute on chronic systolic congestive heart failure (HCC) TAKE 1 TABLET BY MOUTH EVERY MORNING. DO NOT CRUSH OR CHEW. TOTAL DOSE OF 75 MG DAILY. 30 tablet 3 025 Active metoprolol succinate XL (Toprol XL) 25 MG 24 hr tabletIndicatio ns:Acute on chronic systolic congestive heart failure (HCC) TAKE 1 TABLET BY MOUTH EVERY MORNING. DO NOT CRUSH OR CHEW. TOTAL DOSE OF 75 MG DAILY. 30 tablet 2 025 Active Multiple Vitamins-Minera ls (Multivitamin Gummies Adult) chewable tablet CHEW 1 TABLET BY MOUTH EVERY MORNING 90 tablet 3 025 Active docusate sodium (Colace) 100 MG capsuleIndicati ons:Other constipation Take 1 capsule (100 mg) by mouth 2 times daily. 180 capsule 3 025 2025 Active sennosides (Senokot) 8.6 MG tabletIndicatio ns:Other constipation take 1 tablet by oral route at bedtime 90 tablet 3 025 Active diazePAM (Valium) 10 MG tabletIndicatio ns:Developmenta l delay 1 tab 30 minutes prior to his eye exam 2 tablet 025 Active acetaminophen (Tylenol) 325 MG tabletIndicatio ns:Dietary counseling Take 2 Tablets (=650mg) by oral route every 6 hours as needed for fever (temp > 100), headache or bodyache as needed 30 tablet 11 025 Active acetaminophen (Tylenol) 325 MG tablet Take 2 Tablets (=650mg) by oral route every 6 hours as needed for fever (temp > 100), headache or bodyache as needed 30 tablet 11 023 2024 Discontinued(R eorder (will not trigger notification to Pharmacy)) Multiple Vitamins-Minera ls (Multivitamin Gummies Adult) chewable tablet CHEW 1 TABLET BY MOUTH EVERY MORNING 90 tablet 3 024 2024 Discontinued(R eorder (will not trigger notification to Pharmacy)) docusate sodium (Colace) 100 MG capsule Take 1 capsule (100 mg) by mouth 2 times daily. 180 capsule 3 025 2024 Discontinued(R eorder (will not trigger notification to Pharmacy)) sennosides (Senokot) 8.6 MG tablet take 1 tablet by oral route at bedtime as needed for no bowel movement in 2 days or PRN 90 tablet 3 025 2024 Discontinued(R eorder (will not trigger notification to Pharmacy)) Active Problems Problem Noted Date Diagnosed Date Normocytic anemia 07/08/2022 Seasonal allergic rhinitis 07/08/2022 Seizure disorder (CMS/HCC) 07/08/2022 Developmental delay 11/20/2012 Generalized seizure (CMS/HCC) 03/13/2012 Non-rheumatic mitral regurgitation 08/23/2011 Encounters Date Type Department Care Team Description 03/25/2025 10:15 AM EST Office Visit [facility] [address] [place] [address] Dany Wiley MD Developmental delay (Primary Dx); Generalized seizure (CMS/HCC) (HCC); Non-rheumatic mitral regurgitation; Seasonal allergic rhinitis, unspecified trigger; Dietary counseling; Exercise counseling; Overweight; Other constipation; Encounter for immunization 03/25/2025 Travel 03/24/2025 Telephone [facility] [address] [place] [address] Dnay Wiley MD Chart Prep 03/20/2025 Refill [facility] MEDICINE [address] [place] [address] Dany Wiley MD 03/19/[address] [address] Dany Wiley MD Nurse Triage 03/18/2025 Patient Outreach [address] [address] Dany Wiley MD Pre-visit Planning ([facility] screening completed on 11/15/24) 03/03/2025 Orders Only [facility] [address] [place] [address] Dany Wiley MD 02/24/2025 Orders Only [facility] [address] [place] [address] Angela Ruiz MD 02/20/2025 Telephone [facility] MEDICINE [address] [place], [place] [phone] Angela Ruiz MD Durable Medical Equipment 01/03/2025 Refill [facility] [address] [place] [address] Angela Ruiz MD CHF from Last 3 Months Immunizations Immunization Administration Dates Next Due Influenza Whole 03/09/2007,04/14/2006 Influenza injectable quadriv alent IIV4 with preservative 04/10/2019,02/15/2016 Influenza injectable quadriv alent preservative free 06/08/2023,02/23/2022,02/17/2021,02/13 Influenza, IIV3, injectable 04/10/2014 Influenza, Split (incl. mukesh fied surface antigen) 02/20/2013,02/13/2012 Influenza, seasonal, injecta ble, preservative free 03/25/2025,03/13/2024 Moderna Covid-19 Vaccine 12+ 07/02/2020,06/04/19 21 Pfizer Covid-19 Vaccine 12+ 03/13/2024 Pneumococcal Polysaccharide PPSV23 02/18/2011 Tdap 03/25/2025,10/13/2009 Social History Tobacco Use Types Packs/Day Years Used Date Smoking Tobacco: Never Smokeless Tobacco: Never Tobacco Cessation:Counseling Given: Not Answered Alcohol Use Standard Drinks/Week Comments Never 0 [...] not to disclose 2021 10:20 AM EDT Last Filed Vital Signs Vital Sign Reading Time Taken Comments Blood Pressure 125/100 03/25/2025 10:23 AM EST Pulse 76 03/25/2025 10:23 AM EST Temperature 36.1 C (96.9 F) 11/22/2024 9:17 AM EDT Respiratory Rate 21 03/25/2025 10:23 AM EST Oxygen Saturation 100% 03/25/2025 10:23 AM EST Inhaled Oxygen Concentration - - Weight 111 kg (244 lb) 03/25/2025 10:23 AM EST Height 200.7 cm (6' 7 ) 03/25/2025 10:23 AM EST Body Mass Index 27.49 03/25/2025 10:23 AM EST Plan of Treatment Health Maintenance Due Date Last Done Comments CT Colonography 1976 Colonoscopy 1976 Colorectal Cancer Screening 1976 Depression Screening 1976 FIT DNA/Cologuard 1976 FIT 1976 FOBT 1976 HIV Screening 1976 Sigmoidoscopy 1976 Disability Screening 1976 Alcohol/Substance Use Screening 1988 Family Planning (PISQ) 12/27/1991 Hepatitis C Screening 1994 Hepatitis B Vaccines (1 of 3 - 19+ 3-dose series) 12/27/1995 Pneumococcal Vaccine: Pediatrics (0 to 5 Years) and At-Risk Patients (6 to 49) Years (2 of 2 - PCV) 02/19/2012 02/18/2011 COVID-19 Vaccine (4 - season) 2024 03/13/2024, 07/02/2020, 06/04/2020 SDOH Screening 11/15/2025 11/15/2024 Tobacco Screening 03/25/2026 03/25/2025 Zoster Vaccines (1 of 2) 2026 Lipid Panel 03/13/2029 03/13/2024, 02/17/2021 DTaP/Tdap/Td Vaccines (3 - Td or Tdap) 03/25/2035 03/25/2025, 10/13/2009 RSV Patients and Patients Aged 60 years or older (1 - 1-dose 75+ series) 12/27/2051 Influenza Vaccine Completed 03/25/2025, , 06/08/2023, Additional history exists HIB Vaccines Aged Out No longer eligi ble based on patient's age to complete this topic HPV Vaccines Aged Out No longer eligi ble based on patient's age to complete this topic Hepatitis A Vaccines Aged Out No long er eligible based on patient's age to complete this topic IPV Vaccines Aged Out No longer eligi ble based on patient's age to complete this topic Meningococcal B Vaccine Aged Out No l onger eligible based on patient's age to complete this topic Meningococcal Vaccine Aged Out No ronnie antonella eligible based on patient's age to complete this topic RSV under 20 months Aged Out No longe r eligible based on patient's age to complete this topic Rotavirus Vaccines Aged Out No longer eligible based on patient's age to complete this topic Procedures Procedure Name Priority Date/Time Associated Diagnosis Comments CBC WITH AUTO DIFFERENTIAL Routine 03/25/2025 11:10 AM EST Developmental delay Generalized seizure (CMS/HCC) (HCC) AMB REFERRAL TO PODIATRY Urgent 02/05/2025 Discoloration and thickening of nails both feet LIPID PANEL, STANDARD Routine 03/13/2024 10:45 AM EST Generalized seizure (CMS/HCC) from Last 3 Months or Most Recently Relevant to Health Maintenance Results * (ABNORMAL) CBC auto differential (03/25/2025 11:10 AM EST) White Blood Count 4.0(L) 4.8 - 10.8 X10*3/uL [facility] Red Blood Count 4.05(L) 4.60 - 5.80 X10*6/uL [facility] Hemoglobin 12.3(L) 14.0 - 18.0 g/dl [facility] Hematocrit 39.4(L) 42.0 - 52.0 % [facility] Mean Corpuscular Volume 97.3 80.0 - 98.0 fL [facility] Mean Corpuscular Hemoglobin 30.4 27.0 - 33.0 pg [facility] Mean Corpuscular HGB Conc 31.2 31.0 - 36.0 g/dl [facility] Red Cell Distribution Width 12.0 11.0 - 16.0 % [facility] Platelet Count 164 160 - 400 X10*3/uL [facility] Mean Platelet Volume 10.0 9.4 - 12.4 fL [facility] Neutrophils Percent Auto 44.3(L) 45 - 73 % [facility] Imm Gran Pct Auto 0.3 0.0 - 0.4 % [facility] Lymphocytes Percent Auto 44.8(H) 20 - 40 % [facility] Monocytes Percent Auto 9.8 2 - 11 % [facility] Eosinophils Percent Auto 0.0 0 - 4 % [facility] Basophils Percent Auto 0.8 0 - 2 % [facility] NRBC Pct Auto 0.0 0.0 - 0.2 /100WBC [facility] Neutrophils Absolute Auto 1.8(L) 2.0 - 8.3 x10*3/uL [facility] Imm Gran Abs Auto 0.01 0.00 - 0.03 X10*3/uL [facility] Lymphocytes Absolute Auto 1.8 1.2 - 4.9 X10*3/uL [facility] Monocytes Absolute Auto 0.4 0.1 - 1.2 X10*3/uL [facility] Eosinophils Absolute Auto 0.0 0.0 - 0.4 X10*3/uL [facility] Basophils Absolute Auto 0.0 0.0 - 0.2 X10*3/uL [facility] NRBC Abs Auto 0.000 0.0 - 0.012 X10*3/uL [facility] Blood Venous blood specimen / Unknown 03/25/2025 11:10 AM EST 03/25/2025 2:14 PM EST us Dany Wiley MD LAB BLOOD ORDERABLES Final Result [facility] [address] [place], [place] [phone] * Referral to Podiatry (02/05/2025) us Angela Ruiz MD OUTPATIENT REFERRAL ORDERABLES F inal Result * (ABNORMAL) Lipid Panel, Standard (03/13/2024 10:45 AM EST) Triglycerides 79 <150 mg/dL [facility] Comment:Desirable Triglyceri de: less than 150 mg/dLBorderline High Triglyceride 150-199 mg/dLHigh Triglyceride: 200-499 mg/dLVery High Triglyceride: greater than or equal to 5OO mg/dL Cholesterol 194 <200 mg/dL [facility] Comment:Desirable Cholestero l: less than 200 mg/dLBorderline High Cholesterol: 200-239 mg/dLHigh Cholesterol: greater than 239 mg/dL LDL Cholesterol Calculated 131(H) <100 mg/dL [facility] Comment:Desirable LDL: less than 100 mg/dLNear Optimal/Above Optimal LDL: 110- 129 mg/dLBorderline High LDL: 130-159 mg/dLHigh LDL: 160-189 mg/dLVery High LDL: greater than or equal to 190 mg/dL HDL Cholesterol 48 >40 mg/dL [facility] Comment:Desirable HDL: great er than 40 mg/dL Note: This HDL assay may give artificially low results in patients with liver disease. Blood Venous blood specimen / Unknown 03/13/2024 10:45 AM EST 03/13/2024 2:19 PM EST us Angela Ruiz MD LAB BLOOD ORDERABLES Final Resul t [facility] [address] [place] [address] [phone] from Last 3 Months or Most Recently Relevant to Health Maintenance Insurance [employer] Care Teams Freight Forwarder Relationship Specialty Start Date End Date Dany Wiley MD [address] [place] [id number] PCP - General Internal Medicine 02/27/25
--- OUTSIDE RECORDS SUMMARY | 2025-03-25 14:43 | XMS_ITS | Clinical Summary ---
Author Organization [facility] Address [address] [place] [address] Phone Care Team Providers Care Master Technician Name Role Phone Angela Ruiz MD Primary Care Provider [phone] Allergies No known active allergies Medications aspirin 81 mg EC tablet Take 1 tablet (81 mg total) by mouth 1 (one) time each day. 5 Active diazePAM (VALIUM) 10 mg tablet Take 1 tab orally prn 1 hour prior to lab work/studies/te sts/medical treatments for agitation prevention 4 Active docusate sodium (COLACE) 100 mg capsule Take 1 capsule (100 mg total) by mouth 2 times daily. 5 07/04/19 26 Active lamoTRIgine (LaMICtal) 150 mg tablet Take 1 tablet (150 mg total) by mouth. 5 Active metoprolol succinate (TOPROL-XL) 25 mg 24 hr tablet TAKE 1 TABLET BY MOUTH EVERY MORNING. DO NOT CRUSH OR CHEW. TOTAL DOSE OF 75 MG DAILY. 4 Active omeprazole (PriLOSEC) [address] capsule 5 Active senna (SENOKOT) 8.6 mg tablet take 1 tablet by oral route at bedtime as needed for no bowel movement in 2 days or PRN 5 Active Encounters Date Type Department Care Team Description 02/05/2025 8:45 AM EDT Consult Orthopedic Surgery [facility] [address] [phone] Tera Feng, DPM Pes planus of both feet (Primary Dx); Dermatophytosis of nail; Pain in toe of right foot; Pain in toe of left foot; Difficulty walking from Last 3 Months Social History Tobacco Use Types Packs/Day Years Used Date Smoking Tobacco: Never Assessed Sex and Gender Information Value Date Recorded Sex Assigned at Not on file Legal Sex Male 12:38 AM EST Gender Identity Not on file Sexual Orientation Not on file Plan of Treatment Upcoming Encounters Date Type Department Care Team ([facility] st Contact Info) Description 05/08/2025 8:45 AM EST Office Visit Orthopedic Surgery - [place] [address] [phone] Tera Feng, DPAraceli [address] [phone] Health Maintenance Due Date Last Done Comments Colorectal Cancer Screening: Colonoscopy 1976 Hepatitis B Vaccines (1 of 3 - 19+ 3-dose series) 12/27/1995 DTaP,Tdap,and Td Vaccines (2 - Td or Tdap) 10/14/2019 10/13/2009 Depression Screening 05/01/2024 HIV Screening 11/27/2024 Hepatitis C Screening 11/27/2024 Social Influencers of Health Screening 11/27/2024 COVID-19 Vaccine ( season) 2024 03/13/2024, 07/02/2020, 06/04/2020 Influenza Vaccine (#1) 2024 , 06/08/2023, 02/23/2022, Additional history exists Hypertension/CHF/CAD Annual BMP Blood Test 02/05/2025 Cholesterol Screening (Lipid Panel) 03/13/2029 03/13/2024 RSV Immunization Adult Patients (1 - 1-dose 75+ series) 12/27/2051 Pneumococcal Vaccine: Pediatrics (0 to 5 Years) and At-Risk Patients (6 to 49 Years) Aged Out 02/18/2011 No longer eligible based on patient's age to complete this topic HIB Vaccines Aged Out No longer eligi [...] on patient's age to complete this topic MMR Vaccines Aged Out No longer eligi ble based on patient's age to complete this topic Meningococcal ACWY Vaccine Aged Out N o longer eligible based on patient's age to complete this topic Meningococcal B Vaccine Aged Out No l onger eligible based on patient's age to complete this topic RSV Immunization Patients Under 20 months Aged Out No longer eligible based on patient's age to complete this topic Varicella Vaccines Aged Out No longer eligible based on patient's age to complete this topic Insurance MEDICAID - [place] Care Teams Master Technician Relationship Specialty Start Date End Date Angela Ruiz MD [address] [place] [phone] PCP - General Family Medicine 11/27/24
--- OUTSIDE RECORDS SUMMARY | 2025-03-25 14:43 | XMS_ITS | Encounter Summary ---
Author Organization [employer] Address [address] 7t [place] [address] Care Team Providers Care Business Administration Professor Name Role Phone Dany Wiley MD Primary Care Provider [phone] Encounter Details Date Type Department Care Team (Latest Contact Info) Description 03/25/2025 Travel Social History Tobacco Use Types Packs/Day Years [...] on filedocumented in this encounter Care Teams Business Administration Professor Relationship Specialty Start Date End Date Dany Wiley MD [address] [place] [address] PCP - General Internal Medicine 02/27/25 documented as of this encounter
--- OUTSIDE RECORDS SUMMARY | 2025-03-25 14:43 | XMS_ITS | Encounter Summary ---
Author Organization [employer] Address [address] [facility] 7t [place] [address] Care Team Providers Care Home Care Coordinator Name Role Phone Dany Wiley MD Primary Care Provider [phone] Reason for Visit * Reason Onset Date Comments Med Refill 03/20/2025 Encounter Details Date Type Department Care Team (Late st Contact Info) Description 03/20/[address] [facility] [address] [place] [address] Dany Wiley MD [address] [place] [address] [phone] Social History Tobacco Use Types Packs/Day Years [...] encounter Miscellaneous Notes * Telephone Encounter - Nadja Park LPN - 03/20/2025 11:30 AM EST Last seen 11/22/24. * Telephone Encounter - Virgen Peña - 03/20/2025 11:15 AM EST Tc from [facility] requesting a med refill: Multiple Vitamins-Minerals (Multivitamin Gummies Adult) chewable tablet PCP Dr. Wiley documented in this encounter Plan of Treatment Not on file documented as of this encounter Visit Diagnoses Not on filedocumented in this encounter Care Teams Home Care Coordinator Relationship Specialty Start Date End Date Dany Wiley MD [address] [place] [address] PCP - General Internal Medicine 02/27/25 documented as of this encounter
--- OUTSIDE RECORDS SUMMARY | 2025-03-25 14:44 | XMS_ITS | Encounter Summary ---
Author Organization [employer] Address [address] [place] [address] 7t [place] [address] Care Team Providers Care Conservation Enforcement Officer Name Role Phone Angela Ruiz MD Primary Care Provider [phone] Dany Wiley MD Primary Care Provider [phone] Reason for Visit * Reason Onset Date Comments requesting a call back 08/10/2022 Encounter Details Date Type Department Care Team ([facility] st Contact Info) Description 08/10/2022 Telephone [facility] MED & PED[facility] [address] [place], [place] [phone] Angela Ruiz MD [address] [place] [address] requesting a call back Social History Tobacco Use Types Packs/Day Years [...] suspected to have Coronavirus/COVID-19? No / Unsure 08/05/2022 10:29 AM EDT documented as of this encounter Miscellaneous Notes * Telephone Encounter - Tisha Hodge - 08/10/2022 10:09 AM EDT Tc from [facility] nurse requesting a pulmonary consult , nebulizer script and xray results . Best contact # [phone] documented in this encounter Plan of Treatment Not on file documented as of this encounter Visit Diagnoses Not on filedocumented in this encounter Care Teams Conservation Enforcement Officer Relationship Specialty Start Date End Date Angela Ruiz MD [address] [place] [address] PCP - General Family Medicine 03/14/12 02/26/25 Dany Wiley MD [address] [place] [id number] PCP - General Internal Medicine 02/27/25 documented as of this encounter
--- OUTSIDE RECORDS SUMMARY | 2025-03-25 14:44 | XMS_ITS | Encounter Summary ---
Author Organization [employer] Address [address] [facility] 7t [place] [address] Care Team Providers Care Voice Studies Director Name Role Phone Dany Wiley MD Primary Care Provider [phone] Encounter Details Date Type Department Care Team ([facility] st Contact Info) Description 03/03/2025 Orders Only [facility] MED & PEDS [address] [place], [place] [phone] Dany Wiley MD [address] [place] [address] Social History Tobacco Use Types Packs/Day Years [...] Answer Date Recorded Internet Access Q1 Yes 11/15/2024 Internet Access Q2 I do not want or need it 10/29 Sex and Gender Information Value Date Recorded [...] on filedocumented in this encounter Care Teams Voice Studies Director Relationship Specialty Start Date End Date Dany Wiley MD [address] [place] [address] PCP - General Internal Medicine 02/27/25 documented as of this encounter
--- OUTSIDE RECORDS SUMMARY | 2025-03-25 14:44 | XMS_ITS | Encounter Summary ---
Author Organization [employer] Address [address] [place] [address] 7 [place] [address] Care Team Providers Care American History Professor Name Role Phone Angela Ruiz MD Primary Care Provider [phone] Dany Wiley MD Primary Care Provider [phone] Encounter Details Date Type Department Care Team (Late st Contact Info) Description 04/19/2022 Orders Only [facility] [address] [place], [place] [phone] Angela Ruiz MD [address] [place], [place] [phone] Seizure (CMS/HCC) (Primary Dx) Social History Tobacco Use Types Packs/Day Years [...] as of this encounter Visit Diagnoses Diagnosis Seizure (CMS/HCC) (HCC)- Primary Other convulsions documented in this encounter Care Teams American History Professor Relationship Specialty Start Date End Date Angela Ruiz MD [address] [place] [address] PCP - General Family Medicine 03/14/12 02/26/25 Dany Wiley MD [address] [place], [place] [phone] PCP - General Internal Medicine 02/27/25 documented as of this encounter
--- OUTSIDE RECORDS SUMMARY | 2025-03-25 14:44 | XMS_ITS | Encounter Summary ---
Author Organization [employer] Address [address] [place] [address] 7t [place] [address] Care Team Providers Care Bolt Cutter Name Role Phone Angela Ruiz MD Primary Care Provider [phone] Dany Wiley MD Primary Care Provider [phone] Reason for Visit * Reason Onset Date Comments Med Refill 07/27/2022 Encounter Details Date Type Department Care Team ([facility] st Contact Info) Description 07/27/2022 Telephone [facility] MED & PEDS [address] [place], [place] [phone] Angela Ruiz MD [address] [place] [address] Med Refill Social History Tobacco Use Types Packs/Day Years [...] suspected to have Coronavirus/COVID-19? No / Unsure 07/18/2022 9:31 AM EDT documented as of this encounter Miscellaneous Notes * Telephone Encounter - Tisha Hodge - 07/27/2022 10:29 AM EDT Tc from [facility] requesting med refill for medication senna 8.5 mg . documented in this encounter Plan of Treatment Not on file documented as of this encounter Visit Diagnoses Not on filedocumented in this encounter Care Teams Bolt Cutter Relationship Specialty Start Date End Date Angela Ruiz MD [address] [place] [id number] PCP - General Family Medicine 03/14/12 02/26/25 Dany Wiley MD [address] [place] [address] PCP - General Internal Medicine 02/27/25 documented as of this encounter
--- OUTSIDE RECORDS SUMMARY | 2025-03-25 14:44 | XMS_ITS | Encounter Summary ---
Author Organization [employer] Address [address] [facility] 7t [place] [address] Care Team Providers Care Medical Detail Representative Name Role Phone Angela Ruiz MD Primary Care Provider [phone] Dany Wiley MD Primary Care Provider [phone] Encounter Details Date Type Department Care Team (Late st Contact Info) Description 02/24/2025 Orders Only [facility] MED & PEDS [address] [place], [place] [phone] Angela Ruiz MD [address] [place] [address] Social History Tobacco Use Types Packs/Day Years [...] on filedocumented in this encounter Care Teams Medical Detail Representative Relationship Specialty Start Date End Date Angela Ruiz MD [address] [place] [address] PCP - General Family Medicine 03/14/12 02/26/25 Dany Wiley MD [address] [place] [address] PCP - General Internal Medicine 02/27/25 documented as of this encounter
--- OUTSIDE RECORDS SUMMARY | 2025-03-25 14:44 | XMS_ITS | Encounter Summary ---
Author Organization [employer] Address [address] [place] [address] 7[address] [place] [address] Care Team Providers Care Offset Press Operator Apprentice Name Role Phone Angela Ruiz MD Primary Care Provider [phone] Dany Wiley MD Primary Care Provider [phone] Reason for Visit * Reason Onset Date Comments Medication Question 07/27/2022 Encounter Details Date Type Department Care Team ([facility] st Contact Info) Description 07/27/2022 Telephone [facility] CH[facility] MED & PEDS [address] [place], [place] [phone] Angela Ruiz MD [address] [place] [address] Medication Question Social History Tobacco Use Types [...] encounter Miscellaneous Notes * Telephone Encounter - Sharla Adams RN - 07/27/2022 11:57 AM EDT RN returned call to [facility] regarding medication refill request. Per [facility] he will need refill for Acetaminophen 650mg tab, 1 tab by oral route every 6 hours as needed for fever greater 100, for headaches or bodyaches Senna 8.6mg, 1 tablet by mouth at bedtime as needed for constipation for no Bowel movement in 2 days. If no bowel movement in 24 hours after first dose, call PCP. RN unable to edit sig to what is requested. Will forward message to PCP regarding refill request. * Telephone Encounter - Tisha Hodge - 07/27/2022 10:35 AM EDT Tc from [facility] requesting med refill for medication tylenol but instead of 325 mg 2 tablets every 6 hr would prefer tylenol 650 and 1 tablet every 6 hr. documented in this encounter Plan of Treatment Not on file documented as of this encounter Visit Diagnoses Not on filedocumented in this encounter Care Teams Offset Press Operator Apprentice Relationship Specialty Start Date End Date Angela Ruiz MD [address] [place] [id number] PCP - General Family Medicine 03/14/12 02/26/25 Dany Wiley MD [address] [place] [address] PCP - General Internal Medicine 02/27/25 documented as of this encounter
--- OUTSIDE RECORDS SUMMARY | 2025-03-25 14:44 | XMS_ITS | Encounter Summary ---
Author Organization [employer] Address [address] [facility] 7t [place] [address] Care Team Providers Care Manager Financial Name Role Phone Angela Ruiz MD Primary Care Provider [phone] Dany Wiley MD Primary Care Provider [phone] Reason for Visit * Reason Onset Date Comments Appointment Request 07/13/2022 Encounter Details Date Type Department Care Team ([facility] st Contact Info) Description 07/13/2022 Telephone [facility] [address] [place] [address] Angela Ruiz MD [address] [place] [address] Appointment Request Social History Tobacco Use Types Packs/Day Years [...] suspected to have Coronavirus/COVID-19? No / Unsure 07/08/2022 10:10 AM EST documented as of this encounter Miscellaneous Notes * Telephone Encounter - Sharla Adams RN - 07/15/2022 10:19 AM EDT Return call placed to [facility] from the long term who is requesting to rescheduled missed appt on 07/12. Pt was seen for cough and wheezing and was prescribed Azithromycin during last appt. Per [facility], pt has completed the course of ABT but symptoms remain the same. States pt experience SOB with activity and also has wheezing. Advised to send pt to the ED for worsening symptoms but per [facility], pt hasexperience this in the past but all diagnostic test were negative. F/U appt scheduled for this Mon.Also [facility] agreed to send pt to the ED when symptoms get worse. * Telephone Encounter - Justyn Olmos - 07/13/2022 1:54 PM EDT Tc from pt requesting to r/s appt on 07/12/22 ( f/u SDC 07/08/22. Started on Azithromycin. ) Please contact pt at [phone] documented in this encounter Plan of Treatment Not on file documented as of this encounter Visit Diagnoses Not on filedocumented in this encounter Care Teams Manager Financial Relationship Specialty Start Date End Date Angela Ruiz MD [address] [place] [address] PCP - General Family Medicine 03/14/12 02/26/25 Dany Wiley MD [address] [place] [address] PCP - General Internal Medicine 02/27/25 documented as of this encounter
[2025-03-25 14:56] LABS: Alanine Aminotransferase 10 U/L (0-40); Albumin Level 4.4 g/dL (3.5-5.0); Alkaline Phosphatase 81 U/L (39-117); Anion Gap 7 (12-20); Aspartate Amino Transferase 23 U/L (5-37); Blood Urea Nitrogen 22 mg/dL (9-16); Calcium 9.2 mg/dL (8.4-10.2); Carbon Dioxide 32 mmol/L (22-29); Chloride 106 mmol/L (96-108); Cholesterol 187 mg/dL (<200); Estimated Glomerular Filt Rate 59; HDL Cholesterol 50 mg/dL (>40); Potassium 3.9 mmol/L (3.3-5.1); Sodium 141 mmol/L (135-145); Total Protein 8.3 g/dL (6.5-8.0); Triglycerides 54 mg/dL (<150)
[2025-03-26 05:30] LABS: HBS Num1 89.01 mIU/mL (0-7.99); HIV Num 1 0.11 S/CO (0.00-0.99); ~HepC Num1 0.29 S/CO (0.00-0.79); ~Hepatitis B Surface Antibody REACTIVE (Nonreactive); ~Hepatitis C Antibody Nonreactive (Nonreactive)
== END 2025-03-25 11:10 | disposition home or self-care (01) ==
LOC: HO.CHCLDS 11:09
PROVIDERS: Visit Provider Internal Medicine
DX: Z11.4 Encounter for screening for human immunodeficiency virus [HIV] (principal); Z11.59 Encounter for screening for other viral diseases; R62.50 Unspecified lack of expected normal physiological development in childhood; R56.9 Unspecified convulsions
CPT/HCPCS: 36415; 80053; 80061; 84443; 85025; 86706; 86803; 87389